=== PATIENT | male | born 1955 | race Caucasian/White ===

== ENCOUNTER 2018-11-16 19:59 | Emergency (ER) | payer OTHER, SELFPAY ==
[2018-11-16 20:16] VITALS: BP 114/63; PULSE 53; RESP 18; TEMP 36.3; O2SAT 98
--- NOTE | 2018-11-16 20:22 | DI.RAD.S_ITS ---
PROCEDURE: XR WRIST RT MIN 3V INDICATIONS: dog bite (large dog) to right wrist. Now pain / swelling. TECHNIQUE: 4 views of the wrist were acquired. COMPARISON: None. FINDINGS: Bones: Osteoarthritic changes at first CMC joint and scaphotrapezial joint are seen. No fractures or dislocations. No suspicious bony lesions. Scaphoid view: Scaphoid is intact. Soft tissues: No suspicious soft tissue calcifications. No radiopaque foreign body is seen. IMPRESSION: No acute right wrist fracture or dislocation. Right wrist osteoarthritis. No radiopaque foreign body. Dictated by: Sundar Mari M.D. on 11/16/2018 at 20:46 Approved by: Sundar Mari M.D. on 11/16/2018 at 20:47
--- NOTE | 2018-11-16 23:04 | ED.SKABFB ---
HPI - Skin/Abscess/Foreign Bdy General Chief complaint: Skin/Abscess/Foreign Body Stated complaint: Dog bite Time Seen by Provider: 11/16/18 22:58 Source: patient Mode of arrival: ambulatory Limitations: no limitations History of Present Illness HPI narrative: Patient is a 63-year-old male who presents with right arm injury. He threw a ball for his dog at a park when the other dog jumped up and bit his arm. They talked with the owners dog's shots are up-to-date. Patient's shots are also up-to-date. He is on Plavix for peripheral vascular disease he has multiple stents and strokes. Onset (ago): hour(s) Related Data Home Medications Medication Instructions Recorded Confirmed clopidogrel [Plavix] 75 mg PO DAILY 11/16/18 11/16/18 Previous Rx's Medication Instructions Recorded amoxicillin-pot clavulanate 1 tab PO BID #14 tab 11/16/18 [Augmentin] Allergies Allergy/AdvReac Type Severity Reaction Status Date / Time No Known Drug Allergies Allergy Verified 11/16/18 20:21 Review of Systems Review of Systems GENERAL: Denies chills,fever HEENT: Denies throat pain RESPIRATORY: Denies dyspnea, cough, wheezing CARDIOVASCULAR: Denies chest pain, palpitations GASTROINTESTINAL: Denies nausea, vomiting MUSCULOSKELETAL: Denies extremity pain, injury SKIN: See HPI dog bite puncture wounds NEUROLOGIC: Denies weakness, dizziness, headache, numbness 8 point review of systems is negative except for those stated above and HPI PFSH Medical History CVA (cerebral vascular accident) (Acute) Coronary artery disease (Acute) Peripheral vascular disease (Acute) Social History Smoking Status: Former smoker Social History Smoking Status: Former smoker Exam Initial Vital Signs Initial Vital Signs: Vital Signs Temperature 97.3 F L 11/16/18 20:16 Pulse Rate 53 L 11/16/18 20:16 Respiratory Rate 18 11/16/18 20:16 Blood Pressure 114/63 11/16/18 20:16 Pulse Oximetry 98 11/16/18 20:16 GENERAL: Well-appearing, well-nourished and in no acute distress. CARDIOVASCULAR: peripheral pulses in tact, cap refill <2 sec RESPIRATORY: No respiratory distress, speaks in full sentences without difficulty EXTREMITIES: Normal range of motion, no clubbing or edema. Neurovascularly intact Right hand patient is able to move all fingers and wrist. Neurovascularly intact. NEUROLOGICAL: Cranial nerves II through XII grossly intact. Normal gait and speech. SKIN: Very small puncture wounds on the wrist. A small skin tear noted as well. Course Orders Ordered: ED Orders 11/16/18 20:22 XR wrist RT min 3V Stat Discontinued Medications Amoxicillin/Clavulanate Potassium (Augmentin 875-125 Mg) 1 tab PO NOW ONE Stop: 11/16/18 23:04 Last Admin: 11/16/18 23:14 Dose: 1 tab Vital Signs - 8 hr 11/16/18 20:16 11/16/18 23:36 Temperature 97.3 F L 98.4 F Pulse Rate 53 L 50 L Respiratory Rate 18 16 Blood Pressure 114/63 115/60 Pulse Oximetry 98 100 MDM - Skin/Abscess/Foreign Bdy Imaging Data Right wrist: Radiologist's impression: PROCEDURE: XR WRIST RT MIN 3V INDICATIONS: dog bite (large dog) to right wrist. Now pain / swelling. TECHNIQUE: 4 views of the wrist were acquired. COMPARISON: None. FINDINGS: Bones: Osteoarthritic changes at first CMC joint and scaphotrapezial joint are seen. No fractures or dislocations. No suspicious bony lesions. Scaphoid view: Scaphoid is intact. Soft tissues: No suspicious soft tissue calcifications. No radiopaque foreign body is seen. IMPRESSION: No acute right wrist fracture or dislocation. Right wrist osteoarthritis. No radiopaque foreign body. Dictated by: Sundar Mari M.D. on 11/16/2018 at 20:46 Discharge Plan Departure Patient Disposition: Home Clinical Impression: Dog bite of right arm Qualifiers: Encounter type: initial encounter Qualified Code(s): S41.151A - Open bite of right upper arm, initial encounter Discharge Date/Time: 11/16/18 23:37 Interventions: ED Discharge Assessment Last Done: 11/16/18 23:36 Instructions: DI for Dog Bite Activity Restrictions/Additional Instructions: *You have been diagnosed with dog bite right arm *What to do: Keep area clean and dry with soap and water. May apply Neosporin 1-2 times daily *Continue to take medications as directed Augmentin 875 mg twice a day for 7 days *Follow up with your primary care provider in 2-3 days *Return to ER if you should have redness, pus, swelling, inability to move finger or any new, worsening or concerning symptoms Prescriptions: New amoxicillin-pot clavulanate [Augmentin] 875-125 mg tablet 1 tab PO BID Qty: 14 RF: 0 No Action clopidogrel [Plavix] 75 mg Tablet 75 mg PO DAILY RF: 0
[2018-11-16] MEDS: AMOXICILLIN/CLAV 875/125 MG 1 TAB PO (23:14)
[2018-11-16 23:36] VITALS: BP 115/60; PULSE 50; RESP 16; TEMP 36.9; O2SAT 100
== END 2018-11-16 23:37 | disposition home or self-care (01) ==
PROVIDERS: Emergency Provider Emergency Medicine
DX: S41.151A Open bite of right upper arm, initial encounter (principal); W54.0XXA Bitten by dog, initial encounter; Y92.830 Public park as the place of occurrence of the external cause
CPT/HCPCS: 73110; 99283

== ENCOUNTER 2018-11-18 17:52 | Emergency (ER) | payer OTHER, SELFPAY ==
[2018-11-18 18:11] VITALS: BP 105/61; PULSE 55; RESP 18; TEMP 36.9; O2SAT 98
[2018-11-18 20:33] VITALS: BP 110/78; PULSE 70; RESP 18
--- NOTE | 2018-11-18 20:42 | ED.RECABL ---
HPI - Recheck/Abnormal Lab/Rx <VICKI Garcias - Last Filed: 11/18/18 20:46> General Chief Complaint: Recheck/Abnormal Lab/Rx Stated Complaint: INFECTED DOG BITE Time Seen by Provider: 11/18/18 19:00 Source: patient and family Mode of arrival: ambulatory Limitations: no limitations History of Present Illness HPI narrative: The patient is a 63-year-old male former smoker presents with his for chief complaint of concern of an infected dog bite. He is on blood thinners. He states he was seen at the facility 2 days ago after being bit by a [place] Gomes. He has taken his Augmentin and states he has had 4 doses. He denies any fevers nausea vomiting or diarrhea. He states that he is concerned about black and blue petty around the puncture site. He denies any drainage. Related Data Home Medications Medication Instructions Recorded Confirmed clopidogrel [Plavix] 75 mg PO DAILY 11/16/18 11/16/18 Previous Rx's Medication Instructions Recorded amoxicillin-pot clavulanate 1 tab PO BID #14 tab 11/16/18 [Augmentin] Allergies Allergy/AdvReac Type Severity Reaction Status Date / Time No Known Drug Allergies Allergy Verified 11/16/18 20:21 Review of Systems <VICKI Garcias - Last Filed: 11/18/18 20:46> Review of Systems GENERAL: See HPI HEENT: Denies sinus pain, ear pain, sore throat, difficulty swallowing, dizziness. RESPIRATORY: Denies dyspnea, cough, wheezing, hemoptysis, sputum. CARDIOVASCULAR: Denies chest pain, palpitations, orthopnea, edema, GASTROINTESTINAL: Denies nausea, vomiting, abdominal pain, diarrhea, constipation, melena. : Denies dysuria, frequency, incontinence, hematuria, urinary retention. MUSCULOSKELETAL: denies weakness, joint pain, or bony pain SKIN: See HPI NEUROLOGIC: Denies weakness, headache, numbness, change in speech, confusion, seizures, incoordination. PSYCHIATRIC: No concerning psychosocial issues. 12 point review of systems is negative except for those stated above PFSH <VICKI Garcias - Last Filed: 11/18/18 20:46> Medical History CVA (cerebral vascular accident) (Acute) Coronary artery disease (Acute) Peripheral vascular disease (Acute) Social History Smoking Status: Former smoker Social History Smoking Status: Former smoker Exam <VICKI Garcias - Last Filed: 11/18/18 20:46> Narrative Exam Narrative: : GENERAL: This is a well-nourished, well-developed patient, in no acute distress HEAD: Atraumatic. Normocephalic. No temporal or scalp tenderness. EYES: Pupils equal round and reactive. Extraocular motions intact. No scleral icterus. No injection or drainage. NECK: Trachea midline. No JVD or lymphadenopathy. Supple, nontender, no meningeal signs. CARDIOVASCULAR: Regular rate and rhythm without murmurs, gallops, or rubs. RESPIRATORY: Clear to auscultation. Breath sounds equal bilaterally. No wheezes, rales, or rhonchi. No cough no increased respiratory effort. GASTROINTESTINAL: Abdomen soft, non-tender, nondistended. No hepato-splenomegaly, or palpable masses. No guarding. Active bowel sounds all 4 quadrants EXTREMITIES: Full range of motion noted right hand and wrist. Positive radial pulse. Capillary refill less than 2 seconds all fingers right hand. NEURO: AOx3. SKIN: Small puncture wound noted on right wrist, no surrounding erythema. No drainage. No obvious swelling noted. Surrounded ecchymosis noted over anterior aspect of wrist. Initial Vital Signs Initial Vital Signs: Vital Signs Temperature 98.4 F 11/18/18 18:11 Pulse Rate 55 L 11/18/18 18:11 Respiratory Rate 18 11/18/18 18:11 Blood Pressure 105/61 11/18/18 18:11 Pulse Oximetry 98 11/18/18 18:11 <Arturo Andrews DO - Last Filed: 11/19/18 03:48> Initial Vital Signs Initial Vital Signs: Vital Signs Temperature 98.4 F 11/18/18 18:11 Pulse Rate 55 L 11/18/18 18:11 Respiratory Rate 18 11/18/18 18:11 Blood Pressure 105/61 11/18/18 18:11 Pulse Oximetry 98 11/18/18 18:11 Course <SHAQUILLE Garcias-BC - Last Filed: 11/18/18 20:46> Vital Signs - 8 hr 11/18/18 20:33 Pulse Rate 70 Respiratory Rate 18 Blood Pressure [Left Arm] 110/78 <Arturo Andrews DO - Last Filed: 11/19/18 03:48> Vital Signs - 8 hr 11/18/18 20:33 Pulse Rate 70 Respiratory Rate 18 Blood Pressure [Left Arm] 110/78 MDM - Recheck/Abnormal Lab/Rx <Richa OcampoVICKI holden - Last Filed: 11/18/18 20:46> MDM Narrative Medical decision making narrative: The patient is a 63-year-old male who presents for chief complaint of a possible infected dog bite. There are no signs of infection on exam, rather surrounding ecchymosis. He has no systemic signs of infection such as fevers nausea vomiting or diarrhea. I discussed at length continued use of the antibiotic and monitor for drainage, surrounding erythema and other signs of infection. Discussed at length following up PCP. Discussed come back to the ER for any acute concerns. Patient and felt very reassured by discussion. No questions or concerns upon discharge Discharge Plan Departure Patient Disposition: Home Clinical Impression: Bruising Dog bite of right arm Qualifiers: Encounter type: sequela Qualified Code(s): S41.151S - Open bite of right upper arm, sequela Discharge Date/Time: 11/18/18 20:35 Interventions: ED Discharge Assessment Last Done: 11/18/18 20:33 Instructions: Easy Bruising (Alternative Therapy), DI for Animal Bites Activity Restrictions/Additional Instructions: Your dog bite looks good today. There are no signs of infection, but rather signs of bruising Please continue to monitor for redness swelling and pus. Please follow up with primary care provider. Please come back to emergency department for any acute concerns such as inability keep down fluids etc. Prescriptions: No Action clopidogrel [Plavix] 75 mg Tablet 75 mg PO DAILY RF: 0 amoxicillin-pot clavulanate [Augmentin] 875-125 mg tablet 1 tab PO BID Qty: 14 RF: 0 <Arturo Andrews DO - Last Filed: 11/19/18 03:48> Cosign ED Attending Burtonature Attestation: I was immediately available in the department for consultation. Documentation has been reviewed. I agree with assessment and plan.
--- NOTE | 2018-11-18 20:47 | ED_ITS ---
HPI - Recheck/Abnormal Lab/Rx <VICKI Garcias - Last Filed: 11/18/18 20:46> General Chief Complaint: Recheck/Abnormal Lab/Rx Stated Complaint: INFECTED DOG BITE Time Seen by Provider: 11/18/18 19:00 Source: patient and family Mode of arrival: ambulatory Limitations: no limitations History of Present Illness HPI narrative: The patient is a 63-year-old male former smoker presents with his for chief complaint of concern of an infected dog bite. He is on blood thinners. He states he was seen at the facility 2 days ago after being bit by a [place] Gomes. He has taken his Augmentin and states he has had 4 doses. He denies any fevers nausea vomiting or diarrhea. He states that he is concerned about black and blue petty around the puncture site. He denies any drainage. Related Data Home Medications Medication Instructions Recorded Confirmed clopidogrel [Plavix] 75 mg PO DAILY 11/16/18 11/16/18 Previous Rx's Medication Instructions Recorded amoxicillin-pot clavulanate 1 tab PO BID #14 tab 11/16/18 [Augmentin] Allergies Allergy/AdvReac Type Severity Reaction Status Date / Time No Known Drug Allergies Allergy Verified 11/16/18 20:21 Review of Systems <VICKI Garcias - Last Filed: 11/18/18 20:46> Review of Systems GENERAL: See HPI HEENT: Denies sinus pain, ear pain, sore throat, difficulty swallowing, dizziness. RESPIRATORY: Denies dyspnea, cough, wheezing, hemoptysis, sputum. CARDIOVASCULAR: Denies chest pain, palpitations, orthopnea, edema, GASTROINTESTINAL: Denies nausea, vomiting, abdominal pain, diarrhea, c onstipation, melena. : Denies dysuria, frequency, incontinence, hematuria, urinary retention. MUSCULOSKELETAL: denies weakness, joint pain, or bony pain SKIN: See HPI NEUROLOGIC: Denies weakness, headache, numbness, change in speech, confusion, seizures, incoordination. PSYCHIATRIC: No concerning psychosocial issues. 12 point review of systems is negative except for those stated above PFSH <VICKI Garcias - Last Filed: 11/18/18 20:46> Medical History CVA (cerebral vascular accident) (Acute) Coronary artery disease (Acute) Peripheral vascular disease (Acute) Social History Smoking Status: Former smoker Social History Smoking Status: Former smoker Exam <VICKI Garcias - Last Filed: 11/18/18 20:46> Narrative Exam Narrative: : GENERAL: This is a well-nourished, well-developed patient, in no acute distress HEAD: Atraumatic. Normocephalic. No temporal or scalp tenderness. EYES: Pupils equal round and reactive. Extraocular motions intact. No scleral icterus. No injection or drainage. NECK: Trachea midline. No JVD or lymphadenopathy. Supple, nontender, no meningeal signs. CARDIOVASCULAR: Regular rate and rhythm without murmurs, gallops, or rubs. RESPIRATORY: Clear to auscultation. Breath sounds equal bilaterally. No wheezes, rales, or rhonchi. No cough no increased respiratory effort. GASTROINTESTINAL: Abdomen soft, non-tender, nondistended. No hepato- splenomegaly, or palpable masses. No guarding. Active bowel sounds all 4 quadrants EXTREMITIES: Full range of motion noted right hand and wrist. Positive radial pulse. Capillary refill less than 2 seconds all fingers right hand. NEURO: AOx3. SKIN: Small puncture wound noted on right wrist, no surrounding erythema. No drainage. No obvious swelling noted. Surrounded ecchymosis noted over anterior aspect of wrist. Initial Vital Signs Initial Vital Signs: Vital Signs Temperature 98.4 F 11/18/18 18:11 Pulse Rate 55 L 11/18/18 18:11 Respiratory Rate 18 11/18/18 18:11 Blood Pressure 105/61 11/18/18 18:11 Pulse Oximetry 98 11/18/18 18:11 <Arturo Andrews DO - Last Filed: 11/19/18 03:48> Initial Vital Signs Initial Vital Signs: Vital Signs Temperature 98.4 F 11/18/18 18:11 Pulse Rate 55 L 11/18/18 18:11 Respiratory Rate 18 11/18/18 18:11 Blood Pressure 105/61 11/18/18 18:11 Pulse Oximetry 98 11/18/18 18:11 Course <Richa Ramírez, INSTRUCTIONAL SPECIALIST-BC - Last Filed: 11/18/18 20:46> Vital Signs - 8 hr 11/18/18 20:33 Pulse Rate 70 Respiratory Rate 18 Blood Pressure [Left Arm] 110/78 <Arturo Andrews DO - Last Filed: 11/19/18 03:48> Vital Signs - 8 hr 11/18/18 20:33 Pulse Rate 70 Respiratory Rate 18 Blood Pressure [Left Arm] 110/78 MDM - Recheck/Abnormal Lab/Rx <Richa OcampoVICKI holden - Last Filed: 11/18/18 20:46> [facility] Narrative Medical decision making narrative: The patient is a 63-year-old male who presents for chief complaint of a possible infected dog bite. There are no signs of infection on exam, rather surrounding ecchymosis. He has no systemic signs of infection such as fevers nausea vomiting or diarrhea. I discussed at length continued use of the antibiotic and monitor for drainage, surrounding erythema and other signs of infection. Discussed at length following up PCP. Discussed come back to the ER for any acute concerns. Patient and felt very reassured by discussion. No questions or concerns upon discharge Discharge Plan Departure Patient Disposition: Home Clinical Impression: Bruising Dog bite of right arm Qualifiers: Encounter type: sequela Qualified Code(s): S41.151S - Open bite of right upper arm, sequela Discharge Date/Time: 11/18/18 20:35 Interventions: ED Discharge Assessment Last Done: 11/18/18 20:33 Instructions: Easy Bruising (Alternative Therapy), DI for Animal Bites Activity Restrictions/Additional Instructions: Your dog bite looks good today. There are no signs of infection, but rather signs of bruising Please continue to monitor for redness swelling and pus. Please follow up with primary care provider. Please come back to emergency department for any acute concerns such as inability keep down fluids etc. Prescriptions: No Action clopidogrel [Plavix] 75 mg Tablet 75 mg PO DAILY RF: 0 amoxicillin-pot clavulanate [Augmentin] 875-125 mg tablet 1 tab PO BID Qty: 14 RF: 0 <Arturo Andrews DO - Last Filed: 11/19/18 03:48> Cosign ED Attending Burtonature Attestation: I was immediately available in the department for consultation. Documentation has been reviewed. I agree with assessment and plan.
== END 2018-11-18 20:35 | disposition home or self-care (01) ==
PROVIDERS: Emergency Provider Nurse Practitioner Family
DX: S41.151D Open bite of right upper arm, subsequent encounter (principal); W54.0XXD Bitten by dog, subsequent encounter
CPT/HCPCS: 99282